=== PATIENT | male | born 1980 | race Caucasian/White ===

== ENCOUNTER 2018-08-30 13:24 | Inpatient (IN) | payer OTHER ==
[2018-08-30 15:28] VITALS: BMI 22.6
--- NOTE | 2018-08-30 16:27 | HP ---
CIWA Score - Admission Criteria OASAS Guidelines: Admission for Medically Managed Detox: Requires at least one of the followin. CIWA greater than 12 2. Seizures within the past 24 hours 3. Delirium tremens within the past 24 hours 4. Hallucinations within the past 24 hours 5. Acute intervention needed for co occurring medical disorder 6. Acute intervention needed for co occurring psychiatric disorder 7. Severe withdrawal that cannot be handled at a lower level of care (continued vomiting, continued diarrhea, abnormal vital signs) requiring intravenous medication and/or fluids 8. Admission ROS S - HPI Allergies/Adverse Reactions: Allergies Allergy/AdvReac Type Severity Reaction Status Date / Time fish derived Allergy Intermediate Swelling Verified 08/30/18 15:19 No Known Drug Allergies Allergy Verified 08/30/18 17:06 History of Present Illness: Search Terms: nona eric, 1980 Search Date: 08/30/2018 04:19:51 PM The Drug Utilization Report below displays all of the controlled substance prescriptions, if any, that your patient has filled in the last twelve months. The information displayed on this report is compiled from pharmacy submissions to the Department, and accurately reflects the information as submitted by the pharmacies. This report was requested by: Marie Acosta | Reference #: [id number] There are no results for the search terms that you entered. pt here requesting rehab from opiate and cocaine use , [facility] january [facility] , current daily dose 120 mg etoh : denies current use cocaine : crack cocaine 2-3 x/ week cannabis : daily tobacco : daily heroin : " only when I miss my program " PMHX : hiv , glaucoma , UE neuropathy r hand after frx 1 year ago , heart murmur, asthma, pancreatitis PSHx : denies Psych : adhd , bipolar d/o , sad not on meds " I don't like the meds " , denies SI / HI . SHX : homeless , unemployed Exam Limitations: Clinical Condition, Intoxication - Ebola screening Have you traveled outside of the country in the last 21 days: No Have you had contact with anyone from an Ebola affected area: No Do you have a fever: No - Review of Systems Constitutional: Loss of Appetite EENT: reports: Other (glasses) Respiratory: reports: No Symptoms reported Cardiac: reports: No Symptoms Reported GI: reports: See HPI : reports: No Symptoms Reported Musculoskeletal: reports: No Symptoms Reported Integumentary: reports: No Symptoms Reported Neuro: reports: No Symptoms reported Endocrine: reports: No Symptoms Reported Psychiatric: reports: Orientated x3, other (drowsy , falls asleep frequently during interview , awakened by verbal stimuli.) Patient History - Smoking Cessation Smoking history: Current every day smoker Have you smoked in the past 12 months: Yes Initiated information on smoking cessation: No - Substances abused Heroin Substance route: Injection Frequency: 3-6 times per week Amount used: $30 Age of first use: 37 Date of last use: 08/30/18 Marijuana/Hashish Substance route: Smoking Frequency: Daily Amount used: 6-7 blunts Age of first use: 11 Date of last use: 08/30/18 Crack Substance route: Smoking Frequency: 3-6 times per week Amount used: 6 bags Age of first use: 35 Date of last use: 08/30/18 Family Disease History - Family Disease History Family History: Unable to Obtain Admission Physical Exam [facility] - Vital Signs Vital Signs: Vital Signs - 24 hr 08/30/18 08/30/18 15:17 16:01 Temperature 98 F 98 F Pulse Rate 56 L 56 L Respiratory 16 16 Rate Blood Pressure 94/60 94/60 - Physical General Appearance: Yes: Intoxicated HEENTM: Yes: EOMI, Normocephalic, Normal Voice Respiratory: Yes: Lungs Clear, No Respiratory Distress, No Accessory Muscle Use Neck: Yes: No masses,lesions,Nodules, Trachea in good position Cardiology: Yes: Regular Rhythm, Regular Rate, S1, S2 Abdominal: Yes: Non Tender, Soft Back: Yes: Normal Inspection Musculoskeletal: Yes: Gait Steady Extremities: Yes: Normal Range of Motion, Non-Tender Neurological: Yes: Fully Oriented, Alert, Motor Strength 5/5 Integumentary: Yes: Warm, Other (excoriation on nose , reports cigarette burn , and on forearms several round excoriations , self-inflicted.) - Diagnostic (1) Opioid dependence on agonist therapy Current Visit: Yes Status: Acute (2) Cocaine abuse Current Visit: Yes Status: Chronic (3) Nicotine dependence Current Visit: Yes Status: Chronic Qualifiers: Nicotine product type: cigarettes Breathalyzer - Breathalyzer Breathalyzer: 0 Urine Drug Screen - Test Device Lot number: [id number] Expiration date: 05/10/20 - Control Is test valid?: Yes - Results Drug screen NEGATIVE: No Urine drug screen results: THC-Marijuana, TRACY-Cocaine, MOP-Opiates, MTD- Methadone Inpatient Rehab Admission - Rehab Decision to Admit Inpatient rehab admission?: Yes - Initial Determination Are CD services needed?: Yes Free of communicable disease: Yes Not in need of hospitalization: Yes - Rehab Admission Criteria Previous failed treatment: Yes Poor recovery environment: Yes Comorbidities: No Lacks judgement: Yes Patient is meeting Inpatient Rehab admission criteria:: Yes
[2018-08-30] MEDS ORDERED: MAG HYDROX/AL HYDROX/SIMETH 30 ML UNIT-DOSE CUP PO PRN (16:58)
[2018-08-30] MEDS ORDERED: P-EPHED 60MG/TRIPROLIDI 2.5MG TABLET PO PRN (16:58)
[2018-08-30] MEDS ORDERED: guaiFENesin 200 MG/10 ML 10 ML UNIT-DOSE CUPS PO PRN (16:58)
[2018-08-30] MEDS ORDERED: MAGNESIUM HYDROX 2400MG/30ML ORAL SUSPENSION 30 ML CUP PO PRN (16:58)
[2018-08-30] MEDS ORDERED: IBUPROFEN 400 MG TABLET (FP) PO PRN (16:58)
[2018-08-30] MEDS ORDERED: ACETAMINOPHEN 325 MG TABLET (FP) PO PRN (16:58)
[2018-08-30] MEDS ORDERED: ALBUTEROL SO4 0.083% IH SOL 2.5 MG/3 ML VIAL.NEB. NEB PRN (16:58)
[2018-08-30] MEDS ORDERED: MAGNESIUM CITRATE 300 ML BOTTLE PO PRN (16:58)
[2018-08-30] MEDS ORDERED: NICOTINE POLACRILEX 2 MG GUM BC PRN (16:58)
[2018-08-30] MEDS ORDERED: MENTHOL/PHENOL 1 EACH UD MM PRN (16:58)
[2018-08-30] MEDS: THIAMINE HCL 100 MG TABLET (FP) PO SCH (21:57)
[2018-08-30] MEDS: MELATONIN 5 MG TABLETS PO PRN (21:57)
[2018-08-30] MEDS: BACITRACIN/POLYMYXIN B SULFATE 15 GM TUBE TP SCH (21:57)
[2018-08-31 05:49] LABS: PH,URINE 7.5 (5.0-8.0); URINE APPEARANCE CLEAR; URINE BILIRUBIN NEGATIVE (NEGATIVE); URINE COLOR YELLOW; URINE GLUCOSE (UA) NEGATIVE (NEGATIVE); URINE KETONE NEGATIVE (NEGATIVE); URINE LEUK ESTERASE NEGATIVE (NEGATIVE); URINE NITRITE NEGATIVE (NEGATIVE); URINE PROTEIN NEGATIVE (NEGATIVE)
[2018-08-31] MEDS ORDERED: METHADONE HCL 40 MG DISPERSABLE TABLET PO ONE (09:45)
[2018-08-31] MEDS: BACITRACIN/POLYMYXIN B SULFATE 15 GM TUBE TP SCH ×2 (10:23→21:08)
[2018-08-31] MEDS: PRENATAL VITAMINS W/ FOLIC ACID TABLET (FP) PO SCH (10:23)
[2018-08-31 11:49] LABS: HEMATOCRIT 39.8 % (35.4-49); HEMOGLOBIN 13.2 GM/dL (11.7-16.9); MCH 28.7 pg (25.7-33.7); MCHC 33.3 g/dl (32.0-35.9); MEAN CELL VOLUME 86.2 fl (80-96); MEAN PLT VOLUME 10.6 fl (7.5-11.1); PLATELET COUNT 189 K/MM3 (134-434); RBC 4.62 M/mm3 (4.00-5.60); RDW 14.1 % (11.9-15.9); WHITE BLOOD COUNT 5.8 K/mm3 (4.0-10.0)
[2018-08-31 12:03] LABS: ALBUMIN 3.5 g/dl (3.4-5.0); BILIRUBIN,TOTAL 0.6 mg/dL (0.2-1); BLOOD UREA NITROGEN 15.6 mg/dL (7-18); CALCIUM 8.6 mg/dL (8.5-10.1); CREATININE 0.9 mg/dL (0.55-1.3); POTASSIUM 4.3 mmol/L (3.5-5.1); TOT PROT 7.4 g/dl (6.4-8.2)
[2018-08-31] MEDS: THIAMINE HCL 100 MG TABLET (FP) PO SCH (21:06)
[2018-08-31] MEDS: MELATONIN 5 MG TABLETS PO PRN (21:08)
[2018-09-01] MEDS: METHADONE HCL 40 MG DISPERSABLE TABLET PO SCH (06:23)
[2018-09-01] MEDS: PRENATAL VITAMINS W/ FOLIC ACID TABLET (FP) PO SCH (09:31)
[2018-09-01] MEDS: BACITRACIN/POLYMYXIN B SULFATE 15 GM TUBE TP SCH ×2 (09:32→21:03)
[2018-09-01] MEDS ORDERED: ALBUTEROL SO4 8 GM HFA INHALER IH PRN (11:55)
[2018-09-01] MEDS: EMTRICITAB/RILPIVIRINE/TENOFOV 1 EACH TABLET PO SCH (12:44)
[2018-09-01] MEDS: MELATONIN 5 MG TABLETS PO PRN (21:03)
[2018-09-01] MEDS: THIAMINE HCL 100 MG TABLET (FP) PO SCH (21:03)
[2018-09-02] MEDS: METHADONE HCL 40 MG DISPERSABLE TABLET PO SCH (06:19)
[2018-09-02] MEDS: EMTRICITAB/RILPIVIRINE/TENOFOV 1 EACH TABLET PO SCH (09:53)
[2018-09-02] MEDS: PRENATAL VITAMINS W/ FOLIC ACID TABLET (FP) PO SCH (09:53)
[2018-09-02] MEDS: BACITRACIN/POLYMYXIN B SULFATE 15 GM TUBE TP SCH ×2 (09:53→21:03)
[2018-09-02] MEDS: CYPROHEPTADINE HCL 4 MG TABLET PO SCH (16:51)
[2018-09-02] MEDS: THIAMINE HCL 100 MG TABLET (FP) PO SCH (21:02)
[2018-09-02] MEDS: MELATONIN 5 MG TABLETS PO PRN (21:02)
[2018-09-03] MEDS: METHADONE HCL 40 MG DISPERSABLE TABLET PO SCH (06:11)
[2018-09-03] MEDS: CYPROHEPTADINE HCL 4 MG TABLET PO SCH ×3 (06:13→17:23)
[2018-09-03] MEDS: PRENATAL VITAMINS W/ FOLIC ACID TABLET (FP) PO SCH (09:44)
[2018-09-03] MEDS: EMTRICITAB/RILPIVIRINE/TENOFOV 1 EACH TABLET PO SCH (09:44)
[2018-09-03] MEDS: BACITRACIN/POLYMYXIN B SULFATE 15 GM TUBE TP SCH ×2 (09:44→21:04)
--- NOTE | 2018-09-03 16:44 | CONSULT ---
[facility] Psychiatric Consult - Data Date of interview: 09/03/18 Admission source: [facility] Identifying data: First admission to [facility] and direct admission to [address] for this 38 y/o male referred by [facility] program for rehabilitative care to maintain abstinence and address co-morbid issues of ADHD , mood disorder and substance use disorders (alcohol, cocaine, cannabis, nicotine). Patient is single, a father of four, homeless, unemployed and supported [facility]. Substance Abuse History: Discussed in this session. Mr Gaitan admits to current data reported in current [facility] narrative : Smoking history: Current every day smoker. Have you smoked in the past 12 months: Yes. Initiated information on smoking cessation: No. Substances abused: Heroin. Substance route: Injection. Frequency: 3-6 times per week. Amount used: $30. Age of first use : 37. Date of last use: 08/30/18. Marijuana/Hashish. Substance route: Smoking. Frequency: Daily. Amount used: 6-7 blunts. Age of first use: 11. Date of last use: 08/30/18. Crack. Substance route: Smoking. Frequency: 3- 6 times per week. Amount used: 6 bags. Age of first use: 35. Date of last use : 08/30/18 Medical History: Medical profile is remarkable for HIV infection (ART prescribed by patient is non-compliant), glaucoma, neuropathy, heart murmur, bronchial asthma and history of pancreatitis. Psychiatric History: Patient denies history of psychiatric hospitalizations. Mr gaitan indicates that he " used to be " prescribed psychotropic medications ( mirtazapine, quetiapine, thorazine, risperidone) in the past. Has reportedly STOPPED taking these medications for almost two years. Patient has dropped out of psychiatric OPD care at [facility] (now attends Infectious Diseases clinic only). Diagnosed with ADHD and Schizoaffective Disorder. Patient admits to a history of multiple suicide attempts via self-mutilation (last attempt was at [facility] in 2018). Physical/Sexual Abuse/Trauma History: Not discussed. Patient declines. Additional Comment: Urine drug screen results: THC-Marijuana, TRACY-Cocaine, MOP- Opiates, MTD-Methadone. Noted. Mental Status Exam - Mental Status Exam Alert and Oriented to: Time, Place, Person Cognitive Function: Good Patient Appearance: Well Groomed (tattoos on neck and upper extremities) Mood: Withdrawn, Anxious Affect: Mood Congruent, Constricted Patient Behavior: Appropriate, Cooperative Speech Pattern: Clear, Appropriate (cook islander fluent) Voice Loudness: Normal Thought Process: Intact, Goal Oriented Thought Disorder: Not Present Hallucinations: Denies Suicidal Ideation: Denies Homicidal Ideation: Denies Insight/Judgement: Fair Sleep: Poorly, Difficulty falling asleep (ants seroquel) Appetite: Good Muscle strength/Tone: Normal Gait/Station: Normal Psychiatric Findings - Problem List ([place] 1, 2,3) (1) Opioid dependence on agonist therapy Current Visit: Yes Status: Chronic (2) Cocaine abuse Current Visit: Yes Status: Chronic (3) Nicotine dependence Current Visit: Yes Status: Chronic Qualifiers: Nicotine product type: cigarettes (4) Cannabis abuse Current Visit: Yes Status: Chronic (5) Substance induced mood disorder Current Visit: Yes Status: Chronic (6) Insomnia Current Visit: Yes Status: Chronic (7) History of bipolar disorder Current Visit: Yes Status: Chronic (8) Non-compliance Current Visit: Yes Status: Chronic - Initial Treatment Plan Initial Treatment Plan: Psychoeducation. Sleep hygiene. NA meetings. Support. Motivational counseling. Groups. Psychotherapy (cognitive, individual). Seroquel 100 mg po hs. Ordered at patient's request. Side effects/benefits discussed with patient. Verbal consent granted to MD. Campos.
[2018-09-03] MEDS: THIAMINE HCL 100 MG TABLET (FP) PO SCH (21:03)
[2018-09-03] MEDS: QUEtiapine FUMARATE 100 MG TABLET (FP) PO SCH (21:03)
[2018-09-04] MEDS: METHADONE HCL 40 MG DISPERSABLE TABLET PO SCH (06:35)
[2018-09-04] MEDS: CYPROHEPTADINE HCL 4 MG TABLET PO SCH ×3 (06:35→16:48)
[2018-09-04] MEDS: BACITRACIN/POLYMYXIN B SULFATE 15 GM TUBE TP SCH ×2 (09:35→21:02)
[2018-09-04] MEDS: EMTRICITAB/RILPIVIRINE/TENOFOV 1 EACH TABLET PO SCH (10:08)
[2018-09-04] MEDS: PRENATAL VITAMINS W/ FOLIC ACID TABLET (FP) PO SCH (10:08)
--- NOTE | 2018-09-04 14:48 | PN ---
[facility] Progress Note (SOAP) Subjective: patient has a court date tomorrow and has to leave today. Objective: Medically stable for discharge. 09/04/18 14:45 CBC, BMP 08/31/18 09:20 08/31/18 09:20 Vital Signs (72 hours) 09/02/18 09/02/18 09/02/18 00:30 03:30 06:49 Temperature 98.2 F Pulse Rate 66 Respiratory 18 18 16 Rate Blood Pressure 120/68 09/03/18 09/03/18 09/03/18 00:30 03:30 06:20 Temperature 98.6 F Pulse Rate 67 Respiratory 18 18 16 Rate Blood Pressure 112/68 09/04/18 09/04/18 09/04/18 00:30 03:30 06:43 Temperature 98.1 F Pulse Rate 86 Respiratory 18 18 18 Rate Blood Pressure 121/60 Assessment: medically stable for discharge Discharge Dx Opioid dependence Cocaine Dependence HIV dependence. 09/04/18 14:46 Plan: Client will be going home and to court tomorrow. No further plans. Prescriptions transmitted to pharmacy.
--- NOTE | 2018-09-04 14:49 | PN ---
S Progress Note Note: Requested by nursing to electronically transmit script for patient being discharged prematurely. Script for 30 days supply of Seroquel 100 mg/hs is e transmitted to [facility] at [address] [place] [id number]
[2018-09-04] MEDS: THIAMINE HCL 100 MG TABLET (FP) PO SCH (21:02)
[2018-09-04] MEDS: QUEtiapine FUMARATE 100 MG TABLET (FP) PO SCH (21:02)
[2018-09-05] MEDS: CYPROHEPTADINE HCL 4 MG TABLET PO SCH ×2 (06:00→11:22)
[2018-09-05] MEDS: METHADONE HCL 40 MG DISPERSABLE TABLET PO SCH (06:00)
[2018-09-05 06:41] VITALS: BP 95/53; PULSE 81; TEMP 98.4
[2018-09-05] MEDS: EMTRICITAB/RILPIVIRINE/TENOFOV 1 EACH TABLET PO SCH (09:23)
[2018-09-05] MEDS: PRENATAL VITAMINS W/ FOLIC ACID TABLET (FP) PO SCH (09:23)
[2018-09-05] MEDS: BACITRACIN/POLYMYXIN B SULFATE 15 GM TUBE TP SCH (09:23)
--- NOTE | 2018-09-05 15:44 | PN ---
[facility] Progress Note Note: Patient insists on leaving AMA. States has legal obligations. Vital Signs - 24 hr 09/05/18 09/05/18 09/05/18 00:30 03:30 06:39 Temperature 98.4 F Pulse Rate 81 Respiratory 18 18 18 Rate Blood Pressure 95/53 L Laboratory Last Values WBC 5.8 K/mm3 (4.0-10.0) 08/31/18 09:20 RBC 4.62 M/mm3 (4.00-5.60) 08/31/18 09:20 Hgb 13.2 GM/dL (11.7-16.9) 08/31/18 09:20 Hct 39.8 % (35.4-49) 08/31/18 09:20 MCV 86.2 fl (80-96) 08/31/18 09:20 MCH 28.7 pg (25.7-33.7) 08/31/18 09:20 MCHC 33.3 g/dl (32.0-35.9) 08/31/18 09:20 RDW 14.1 % (11.9-15.9) 08/31/18 09:20 Plt Count 189 K/MM3 (134-434) 08/31/18 09:20 MPV 10.6 fl (7.5-11.1) 08/31/18 09:20 Sodium 138 mmol/L (136-145) 08/31/18 09:20 Potassium 4.3 mmol/L (3.5-5.1) 08/31/18 09:20 Chloride 103 mmol/L (98-107) 08/31/18 09:20 Carbon Dioxide 31 mmol/L (21-32) 08/31/18 09:20 Anion Gap 4 MMOL/L (8-16) L 08/31/18 09:20 BUN 15.6 mg/dL (7-18) 08/31/18 09:20 Creatinine 0.9 mg/dL (0.55-1.3) 08/31/18 09:20 Est GFR (CKD-EPI)AfAm 126.90 08/31/18 09:20 Est GFR (CKD-EPI)NonAf 109.49 08/31/18 09:20 Random Glucose 80 mg/dL (74-106) 08/31/18 09:20 Calcium 8.6 mg/dL (8.5-10.1) 08/31/18 09:20 Total Bilirubin 0.6 mg/dL (0.2-1) 08/31/18 09:20 AST 21 U/L (15-37) 08/31/18 09:20 ALT 25 U/L (13-61) 08/31/18 09:20 Alkaline Phosphatase 76 U/L (45-117) 08/31/18 09:20 Total Protein 7.4 g/dl (6.4-8.2) 08/31/18 09:20 Albumin 3.5 g/dl (3.4-5.0) 08/31/18 09:20 Urine Color Yellow 08/31/18 04:00 Urine Appearance Clear 08/31/18 04:00 Urine pH 7.5 (5.0-8.0) 08/31/18 04:00 Ur Specific [place] 1.022 (1.010-1.035) 08/31/18 04:00 Urine Protein Negative (NEGATIVE) 08/31/18 04:00 Urine Glucose (UA) Negative (NEGATIVE) 08/31/18 04:00 Urine Ketones Negative (NEGATIVE) 08/31/18 04:00 Urine Blood Negative (NEGATIVE) 08/31/18 04:00 Urine Nitrite Negative (NEGATIVE) 08/31/18 04:00 Urine Bilirubin Negative (NEGATIVE) 08/31/18 04:00 Urine Urobilinogen 1.0 mg/dL (0.2-1.0) 08/31/18 04:00 Ur Leukocyte Esterase Negative (NEGATIVE) 08/31/18 04:00 RPR Titer Nonreactive (NONREACTIVE) 08/31/18 09:20 Labs reviewed. Patient admitted to rehab w/ a history cocaine use disorder. Patient on methadone maintenance. Patient will return to his MMTP in a.m. Patients other prescribed medications were sent to patients home pharmacy on 09/04. Patient left AMA.
== END 2018-09-05 14:35 | disposition left against medical advice (07) | DRG 770 ==
LOC: YASAS 13:24 → Y5N 17:23
PROVIDERS: ADMIT Neuromusculoskeletal Medicine & OMM; ATTEND Neuromusculoskeletal Medicine & OMM
PROC: HZ42ZZZ Group Counseling for Substance Abuse Treatment, Cognitive-Behavioral (ICD-10-PCS; principal; 2018-08-30)
DX: F14.10 Cocaine abuse, uncomplicated (principal); F11.20 Opioid dependence, uncomplicated; F17.210 Nicotine dependence, cigarettes, uncomplicated; F19.24 Other psychoactive substance dependence with psychoactive substance-induced mood disorder; Z21 Asymptomatic human immunodeficiency virus [HIV] infection status; G47.00 Insomnia, unspecified; H40.9 Unspecified glaucoma; G62.9 Polyneuropathy, unspecified; R01.1 Cardiac murmur, unspecified; J45.909 Unspecified asthma, uncomplicated; Z91.14 Patient's other noncompliance with medication regimen; Z91.013 Allergy to seafood
CPT/HCPCS: 36415; 80053; 81003; 85027; 86593

== ENCOUNTER 2018-09-06 15:57 | Inpatient (IN) | payer OTHER ==
[2018-09-06 16:32] VITALS: BMI 20.9
--- NOTE | 2018-09-06 19:14 | HP ---
COWS - Scale Resting Pulse: 0= MD 80 or Below Sweatin= Chills/Flushing Restless Observation: 3= Extraneous Movement Pupil Size: 0= Normal to Room Light Bone or Joint Aches: 4=Acute Joint/Muscle Pain Runny Nose/ Eye Tearin= Runny Nose/Eyes GI Upset > 30mins: 1= Stomach Cramp Tremor Observation: 0= None Yawning Observation: 0= None Anxiety or Irritability: 2=Irritable/Anxious Goose Flesh Skin: 0=Smooth Skin COWS Score: 13 CIWA Score - Admission Criteria OASAS Guidelines: Admission for Medically Managed Detox: Requires at least one of the followin. CIWA greater than 12 2. Seizures within the past 24 hours 3. Delirium tremens within the past 24 hours 4. Hallucinations within the past 24 hours 5. Acute intervention needed for co occurring medical disorder 6. Acute intervention needed for co occurring psychiatric disorder 7. Severe withdrawal that cannot be handled at a lower level of care (continued vomiting, continued diarrhea, abnormal vital signs) requiring intravenous medication and/or fluids 8. Admission ROS [facility] Allergies/Adverse Reactions: Allergies Allergy/AdvReac Type Severity Reaction Status Date / Time fish derived Allergy Intermediate Swelling Verified 09/06/18 16:24 No Known Drug Allergies Allergy Verified 09/06/18 16:24 History of Present Illness: requesting to return to rehab left yesterday to go to court , postponed through 09/28/18 opiate and cocaine [facility] January 2018 , current daily dose 120 mg , latest administered yesterday, current symptoms as above etoh : denies current use cocaine : crack cocaine 2-3 x/ week cannabis : daily tobacco : daily heroin : " only when I miss my program " PMHX : hiv , glaucoma , UE neuropathy r hand after frx 1 year ago , heart murmur, asthma, pancreatitis PSHx : denies Psych : adhd , bipolar d/o , sad not on meds " I don't like the meds " , denies SI / HI . Exam Limitations: Clinical Condition - Ebola screening Have you traveled outside of the country in the last 21 days: No Have you had contact with anyone from an Ebola affected area: No - Review of Systems Constitutional: See HPI, Chills, Night Sweats EENT: reports: Nose Congestion Respiratory: reports: No Symptoms reported Cardiac: reports: No Symptoms Reported GI: reports: Diarrhea, Nausea : reports: No Symptoms Reported Musculoskeletal: reports: Back Pain, Muscle Weakness Neuro: reports: Headache Endocrine: reports: No Symptoms Reported Psychiatric: reports: Orientated x3 Patient History - Patient Medical History Hx Asthma: No Hx Chronic Obstructive Pulmonary Disease (COPD): No Hx Cardiac Disorders: No Hx Hypertension: No Hx Seizures: No Hx Diabetes: No Hx Gastrointestinal Disorders: No Hx Genitourinary Disorders: No Hx Sexually Transmitted Disorders: Yes (HIV) Hx Renal Disease (ESRD): No Hx Depression: Yes Hx Suicide Attempt: No Hx Schizophrenia: No - Patient Surgical History Past Surgical History: No Hx Neurologic Surgery: No Hx Cataract Extraction: No Hx Cardiac Surgery: No Hx Lung Surgery: No Hx Breast Surgery: No Hx Breast Biopsy: No Hx Abdominal Surgery: No Hx Appendectomy: No Hx Cholecystectomy: No Hx Genitourinary Surgery: No Hx Section: No Hx Orthopedic Surgery: No Anesthesia Reaction: No - PPD History Date: 09/01/18 - Smoking Cessation Smoking history: Current every day smoker Have you smoked in the past 12 months: Yes Aproximately how many cigarettes per day: 20 Hx Chewing Tobacco Use: No Initiated information on smoking cessation: No - Substances abused Heroin Substance route: Injection Frequency: 3-6 times per week Amount used: $30 Age of first use: 37 Date of last use: 09/05/18 Marijuana/Hashish Substance route: Smoking Frequency: Daily Amount used: 6-7 blunts Age of first use: 11 Date of last use: 09/06/18 Crack Substance route: Smoking Frequency: 3-6 times per week Amount used: 6 bags Age of first use: 35 Date of last use: 09/06/18 Alcohol Substance route: Oral Frequency: Daily Amount used: 1/2 gallon (Vodka) Age of first use: 25 Date of last use: 08/27/18 Admission Physical Exam [facility] - Vital Signs Vital Signs: Vital Signs - 24 hr 09/06/18 16:20 Temperature 98.8 F Pulse Rate 99 H Respiratory 18 Rate Blood Pressure 118/63 - Physical General Appearance: Yes: Mild Distress, Moderate Distress, Sweating, Anxious HEENTM: Yes: Normocephalic, Normal Voice Respiratory: Yes: Lungs Clear, Normal Breath Sounds, No Respiratory Distress, No Accessory Muscle Use Neck: Yes: No masses,lesions,Nodules, Trachea in good position Cardiology: Yes: Regular Rhythm, Regular Rate, S1, S2 Abdominal: Yes: Non Tender, Soft Musculoskeletal: Yes: Gait Steady Extremities: Yes: Non-Tender, Tremors Neurological: Yes: Alert, Motor Strength 5/5, Depressed Affect Integumentary: Yes: Warm - Addiitonal Findings: essentially unchanged since 08/30/18 , previous h & p reviewed. pt will be admitted to detox overnight for observation and symptomatic tx due to current complaints , and plan to transfer to rehab in the am if stable - Diagnostic (1) Cannabis abuse Current Visit: Yes Status: Chronic (2) Cocaine abuse Current Visit: Yes Status: Chronic (3) Nicotine dependence Current Visit: Yes Status: Chronic Qualifiers: Nicotine product type: cigarettes (4) Opioid dependence on agonist therapy Current Visit: Yes Status: Chronic Breathalyzer - Breathalyzer Breathalyzer: 0 Urine Drug Screen - Test Device Lot number: [id number] Expiration date: 05/10/20 - Control Is test valid?: Yes - Results Drug screen NEGATIVE: No Urine drug screen results: THC-Marijuana, TRACY-Cocaine, FEN-Fentanyl, MTD- Methadone Inpatient Rehab Admission - Rehab Decision to Admit Inpatient rehab admission?: Yes - Initial Determination Are CD services needed?: Yes Free of communicable disease: Yes Not in need of hospitalization: Yes - Rehab Admission Criteria Previous failed treatment: No Poor recovery environment: Yes Comorbidities: No Lacks judgement: Yes Patient is meeting Inpatient Rehab admission criteria:: Yes
[2018-09-06] MEDS ORDERED: ACETAMINOPHEN 325 MG TABLET (FP) PO PRN (19:15)
[2018-09-06] MEDS ORDERED: MAGNESIUM HYDROX 2400MG/30ML ORAL SUSPENSION 30 ML CUP PO PRN (19:15)
[2018-09-06] MEDS ORDERED: MENTHOL/PHENOL 1 EACH UD MM PRN (19:15)
[2018-09-06] MEDS ORDERED: guaiFENesin 200 MG/10 ML 10 ML UNIT-DOSE CUPS PO PRN (19:15)
[2018-09-06] MEDS ORDERED: IBUPROFEN 400 MG TABLET (FP) PO PRN (19:15)
[2018-09-06] MEDS ORDERED: P-EPHED 60MG/TRIPROLIDI 2.5MG TABLET PO PRN (19:15)
[2018-09-06] MEDS ORDERED: MAG HYDROX/AL HYDROX/SIMETH 30 ML UNIT-DOSE CUP PO PRN (19:15)
[2018-09-06] MEDS ORDERED: hydrOXYzine PAMOATE 25 MG CAPSULE (FP) PO PRN (19:15)
[2018-09-06] MEDS ORDERED: MAGNESIUM CITRATE 300 ML BOTTLE PO PRN (19:15)
[2018-09-06] MEDS ORDERED: ALBUTEROL SO4 8 GM HFA INHALER IH PRN (19:16)
[2018-09-06] MEDS ORDERED: METHADONE HCL 10 MG TABLET PO ONE (19:18)
[2018-09-06] MEDS ORDERED: cloNIDine HCL 0.1 MG TABLET PO PRN (19:57)
[2018-09-06] MEDS ORDERED: METHADONE 80 MG, METHADONE 10 MG PO ONE (20:15)
[2018-09-06] MEDS ORDERED: METHADONE HCL 40 MG DISPERSABLE TABLET ONE (20:30)
[2018-09-06] MEDS ORDERED: METHADONE HCL 10 MG TABLET ONE (20:30)
[2018-09-06] MEDS: THIAMINE HCL 100 MG TABLET (FP) PO SCH (22:32)
[2018-09-06] MEDS: MELATONIN 5 MG TABLETS PO PRN (22:32)
[2018-09-07] MEDS ORDERED: METHADONE HCL 40 MG DISPERSABLE TABLET PO SCH (06:00)
--- NOTE | 2018-09-07 09:08 | PN ---
S CIWA - CIWA Score Nausea/Vomitin-No Nausea/No Vomiting S Progress Note (SOAP) Objective: 09/07/18 09:07 Vital Signs Temperature 97.7 F 09/07/18 06:31 Pulse Rate 65 09/07/18 06:31 Respiratory Rate 18 09/07/18 06:31 Blood Pressure 105/50 L 09/07/18 06:31 O2 Sat by Pulse Oximetry (%) Assessment: 09/07/18 09:08 Patient on MMTP at [facility]. On admission reported dose of 120 mg, dose verified last day of attendance to program 08/30/18, will adjust dose to 90 mg qd
[2018-09-07] MEDS ORDERED: METHADONE HCL 10 MG TABLET PO SCH (09:15)
[2018-09-07] MEDS ORDERED: METHADONE 80 MG, METHADONE 10 MG PO SCH (09:30)
[2018-09-07] MEDS ORDERED: METHADONE HCL 10 MG TABLET ONE (09:49)
[2018-09-07] MEDS ORDERED: METHADONE HCL 40 MG DISPERSABLE TABLET ONE (09:49)
--- NOTE | 2018-09-07 10:41 | PN ---
[facility] Progress Note Note: pt states he was in our rehab from 08/30/18-09/05/18 and left AMA to attend a court date as he was told to do by his assistant professor nurse education. Pt returned yesterday to go back to rehab but no bed was available. Pt was sent to [facility] detox floor until he has a bed in rehab is available for him today. Pt dose for 120mg will be continued as ordered.
[2018-09-07] MEDS ORDERED: METHADONE HCL 40 MG DISPERSABLE TABLET PO ONE (11:00)
[2018-09-07] MEDS: PRENATAL VITAMINS W/ FOLIC ACID TABLET (FP) PO SCH (11:17)
[2018-09-07] MEDS: NICOTINE POLACRILEX 2 MG GUM BC PRN (11:18)
[2018-09-07] MEDS: EMTRICITAB/RILPIVIRINE/TENOFOV 1 EACH TABLET PO SCH (11:18)
[2018-09-07] MEDS: THIAMINE HCL 100 MG TABLET (FP) PO SCH (22:20)
[2018-09-07] MEDS: MELATONIN 5 MG TABLETS PO PRN (22:20)
[2018-09-08] MEDS ORDERED: METHADONE HCL 40 MG DISPERSABLE TABLET PO SCH (06:00)
[2018-09-08] MEDS ORDERED: METHADONE HCL 5 MG TABLET (FOR DETOX USE ONLY) PO SCH (06:00)
[2018-09-08] MEDS: PRENATAL VITAMINS W/ FOLIC ACID TABLET (FP) PO SCH (10:16)
[2018-09-08] MEDS: EMTRICITAB/RILPIVIRINE/TENOFOV 1 EACH TABLET PO SCH (10:16)
[2018-09-08] MEDS: NICOTINE POLACRILEX 2 MG GUM BC PRN (10:17)
--- NOTE | 2018-09-08 10:19 | PN ---
[facility] Progress Note Note: Pt was seen in ambulating in the unit in no acute respiratory distress. Pt denies any withdrawal symptoms. Awaiting for rehab bed.
[2018-09-08 10:41] VITALS: BP 111/62; PULSE 69; TEMP 97.9
[2018-09-08] MEDS ORDERED: ALBUTEROL SO4 8 GM HFA INHALER IH PRN (15:46)
[2018-09-08] MEDS ORDERED: hydrOXYzine PAMOATE 25 MG CAPSULE (FP) PO PRN (15:47)
[2018-09-09] MEDS ORDERED: EMTRICITAB/RILPIVIRINE/TENOFOV 1 EACH TABLET PO SCH (08:00)
== END 2018-09-08 14:15 | disposition other institution (70) | DRG 773 ==
LOC: YASAS 15:57 → Y6N 19:46
PROVIDERS: ADMIT Surgery; ATTEND Surgery
PROC: HZ2ZZZZ Detoxification Services for Substance Abuse Treatment (ICD-10-PCS; principal; 2018-09-06)
DX: F11.20 Opioid dependence, uncomplicated (principal); F14.10 Cocaine abuse, uncomplicated; F12.10 Cannabis abuse, uncomplicated; F17.210 Nicotine dependence, cigarettes, uncomplicated; Z21 Asymptomatic human immunodeficiency virus [HIV] infection status

== ENCOUNTER 2018-09-08 14:32 | Inpatient (IN) | payer OTHER ==
--- NOTE | 2018-09-08 15:19 | HP ---
[facility] Rehab Assess/Revision - Admission History Admitted to Rehab from: [facility] Date of Admission to Rehab: 09/08/2018 - Vital signs Vital Signs: stable. - Findings Detox History & Physical reviewed: Yes Concur with findings: Yes Comments/Additional Findings: Pt is alert and oriented x3 and in no respiratory distress. Inpatient Rehab Admission - Rehab Decision to Admit Inpatient rehab admission?: Yes - Initial Determination Are CD services needed?: Yes Free of communicable disease: Yes Not in need of hospitalization: Yes - Rehab Admission Criteria Previous failed treatment: Yes Poor recovery environment: Yes Comorbidities: Yes Lacks judgement: No Patient is meeting Inpatient Rehab admission criteria:: Yes
[2018-09-08] MEDS ORDERED: MENTHOL/PHENOL 1 EACH UD MM PRN (15:21)
[2018-09-08] MEDS ORDERED: guaiFENesin 200 MG/10 ML 10 ML UNIT-DOSE CUPS PO PRN (15:21)
[2018-09-08] MEDS ORDERED: IBUPROFEN 400 MG TABLET (FP) PO PRN (15:21)
[2018-09-08] MEDS ORDERED: MAGNESIUM CITRATE 300 ML BOTTLE PO PRN (15:21)
[2018-09-08] MEDS ORDERED: P-EPHED 60MG/TRIPROLIDI 2.5MG TABLET PO PRN (15:21)
[2018-09-08] MEDS ORDERED: MAGNESIUM HYDROX 2400MG/30ML ORAL SUSPENSION 30 ML CUP PO PRN (15:21)
[2018-09-08] MEDS ORDERED: LOPERAMIDE HCL 2 MG CAPSULE PO PRN (15:21)
[2018-09-08] MEDS ORDERED: ACETAMINOPHEN 325 MG TABLET (FP) PO PRN (15:21)
[2018-09-08] MEDS ORDERED: ALBUTEROL SO4 8 GM HFA INHALER IH PRN (15:50)
--- NOTE | 2018-09-08 16:04 | PN ---
[facility] Progress Note Note: Psychiatry Attending's note : Patient is transferred to [address] Called for reconciliation of medications. 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 Seroquel 100 mg po hs. Ordered. Continuity of care.
[2018-09-08] MEDS: THIAMINE HCL 100 MG TABLET (FP) PO SCH (21:04)
[2018-09-08] MEDS: QUEtiapine FUMARATE 100 MG TABLET (FP) PO SCH (21:04)
[2018-09-08] MEDS ORDERED: MELATONIN 5 MG TABLETS PO PRN (22:00)
[2018-09-09] MEDS: METHADONE HCL 40 MG DISPERSABLE TABLET PO SCH (06:30)
[2018-09-09] MEDS: PRENATAL VITAMINS W/ FOLIC ACID TABLET (FP) PO SCH (09:37)
[2018-09-09] MEDS: NICOTINE POLACRILEX 2 MG GUM BUC PRN (10:50)
[2018-09-09] MEDS: EMTRICITAB/RILPIVIRINE/TENOFOV 1 EACH TABLET PO SCH (10:55)
[2018-09-09] MEDS: QUEtiapine FUMARATE 100 MG TABLET (FP) PO SCH (21:01)
[2018-09-09] MEDS: THIAMINE HCL 100 MG TABLET (FP) PO SCH (21:02)
[2018-09-10] MEDS: METHADONE HCL 40 MG DISPERSABLE TABLET PO SCH (06:12)
[2018-09-10] MEDS: NICOTINE POLACRILEX 2 MG GUM BUC PRN ×2 (06:17→09:52)
[2018-09-10] MEDS: PRENATAL VITAMINS W/ FOLIC ACID TABLET (FP) PO SCH (09:51)
[2018-09-10] MEDS: MAG HYDROX/AL HYDROX/SIMETH 30 ML UNIT-DOSE CUP PO PRN (09:52)
[2018-09-10] MEDS: hydrOXYzine PAMOATE 25 MG CAPSULE (FP) PO PRN ×2 (09:52→21:06)
[2018-09-10] MEDS: EMTRICITAB/RILPIVIRINE/TENOFOV 1 EACH TABLET PO SCH (10:46)
[2018-09-10] MEDS: THIAMINE HCL 100 MG TABLET (FP) PO SCH (21:05)
[2018-09-10] MEDS: QUEtiapine FUMARATE 100 MG TABLET (FP) PO SCH (21:05)
[2018-09-11] MEDS: METHADONE HCL 40 MG DISPERSABLE TABLET PO SCH (06:22)
[2018-09-11] MEDS: EMTRICITAB/RILPIVIRINE/TENOFOV 1 EACH TABLET PO SCH (07:06)
[2018-09-11] MEDS: PRENATAL VITAMINS W/ FOLIC ACID TABLET (FP) PO SCH (09:43)
[2018-09-11] MEDS: DOCUSATE SODIUM 100 MG CAPSULE (FP) PO SCH ×2 (14:25→21:06)
--- NOTE | 2018-09-11 16:20 | PN ---
S Progress Note (SOAP) Subjective: PT C/O NO BM X 2 DAYS AND EPIGASTRIC AND LOWER ABDOMINAL DISCOMFORT. REPORTS SOME BURNING ON URINATION. ALERT O X 3. OOB AMBULATING WITH STEADY GAIT. Objective: 09/11/18 16:16 Vital Signs - 24 hr 09/11/18 09/11/18 09/11/18 00:30 03:30 06:38 Temperature 97.9 F Pulse Rate 71 Respiratory 18 18 16 Rate Blood Pressure 106/56 L ABDOMEN:SOFT, +BS, GENERALIZED TENDERNESS. Assessment: 09/11/18 16:16 CHRONIC CONSTIPATION DYSPEPSIA Plan: COLACE 100 MG PO TID D/W PT TO GET MOM STAT MYLANTA PRN PROTONIX IF DYSPEPSIA CONTINUES UA TODAY INCREASE PO FLUIDS. ENSURE PLUS TID
[2018-09-11] MEDS: QUEtiapine FUMARATE 100 MG TABLET (FP) PO SCH (21:06)
[2018-09-11] MEDS: THIAMINE HCL 100 MG TABLET (FP) PO SCH (21:06)
[2018-09-12] MEDS: METHADONE HCL 40 MG DISPERSABLE TABLET PO SCH (06:09)
[2018-09-12] MEDS: DOCUSATE SODIUM 100 MG CAPSULE (FP) PO SCH ×3 (06:09→21:02)
[2018-09-12] MEDS: EMTRICITAB/RILPIVIRINE/TENOFOV 1 EACH TABLET PO SCH (07:07)
[2018-09-12] MEDS: PRENATAL VITAMINS W/ FOLIC ACID TABLET (FP) PO SCH (09:44)
[2018-09-12] MEDS: MAG HYDROX/AL HYDROX/SIMETH 30 ML UNIT-DOSE CUP PO PRN (09:46)
[2018-09-12 12:17] LABS: PH,URINE 7.5 (5.0-8.0); URINE APPEARANCE CLEAR; URINE BILIRUBIN NEGATIVE (NEGATIVE); URINE COLOR YELLOW; URINE GLUCOSE (UA) NEGATIVE (NEGATIVE); URINE KETONE NEGATIVE (NEGATIVE); URINE LEUK ESTERASE NEGATIVE (NEGATIVE); URINE NITRITE NEGATIVE (NEGATIVE); URINE PROTEIN NEGATIVE (NEGATIVE); URINE UROBILINOGEN 0.2 mg/dL (0.2-1.0)
[2018-09-12] MEDS: THIAMINE HCL 100 MG TABLET (FP) PO SCH (21:02)
[2018-09-12] MEDS: QUEtiapine FUMARATE 100 MG TABLET (FP) PO SCH (21:02)
[2018-09-13] MEDS: METHADONE HCL 40 MG DISPERSABLE TABLET PO SCH (06:39)
[2018-09-13] MEDS: DOCUSATE SODIUM 100 MG CAPSULE (FP) PO SCH ×3 (06:42→21:02)
[2018-09-13] MEDS: PRENATAL VITAMINS W/ FOLIC ACID TABLET (FP) PO SCH (09:11)
[2018-09-13] MEDS: EMTRICITAB/RILPIVIRINE/TENOFOV 1 EACH TABLET PO SCH (09:11)
[2018-09-13] MEDS: MAG HYDROX/AL HYDROX/SIMETH 30 ML UNIT-DOSE CUP PO PRN (12:53)
[2018-09-13] MEDS: THIAMINE HCL 100 MG TABLET (FP) PO SCH (21:01)
[2018-09-13] MEDS: QUEtiapine FUMARATE 100 MG TABLET (FP) PO SCH (21:01)
[2018-09-13] MEDS: hydrOXYzine PAMOATE 25 MG CAPSULE (FP) PO PRN (21:02)
[2018-09-13] MEDS: NICOTINE POLACRILEX 2 MG GUM BUC PRN (21:03)
--- NOTE | 2018-09-13 21:37 | PN ---
[facility] Progress Note Note: INFORMED BY NURSE SHANA ABOUT POSSIBILITY OF PATIENT IN ROOM 5[address] POSSESSING ILLICIT DRUGS IN ROOM. SECURITY STAFF INFORMED FOR ROOM SEARCH PER INSTITUTION PROTOCOL. PLEASE SEE NURSING NOTE FOR DETAILED REPORT.URINE DRUG TEST ORDERED. PT ALERT O X 3. NAD. Vital Signs - 24 hr 09/13/18 09/13/18 03:30 06:41 Temperature 98.2 F Pulse Rate 75 Respiratory 18 18 Rate Blood Pressure 108/60 REPEAT UA OF 09/11/18 IS WNL Laboratory Tests 09/12/18 11:00 Urine Color Yellow Urine Appearance Clear Urine pH 7.5 Ur Specific [place] 1.016 Urine Protein Negative Urine Glucose (UA) Negative Urine Ketones Negative Urine Blood Negative Urine Nitrite Negative Urine Bilirubin Negative Urine Urobilinogen 0.2 Ur Leukocyte Esterase Negative UDS FOR TODAY 09/13/18: URINE DRUG SCREEN RESULTS Drug Screen Negative No Urine Drug Screen Results THC-Marijuana,MTD-Methadone ADMITTING UDS OF 09/06/18 BELOW HAS SIMILAR DRUGS TO ABOVE URINE DRUG SCREEN. Urine Drug Screen - Test Device Lot number: [id number] Expiration date: 05/10/20 - Control Is test valid?: Yes - Results Drug screen NEGATIVE: No Urine drug screen results: THC-Marijuana, TRACY-Cocaine, FEN-Fentanyl, MTD- Methadone MONITOR PT STATUS MAINTAIN SAFETY
[2018-09-14 06:46] VITALS: BP 110/71; PULSE 69; TEMP 98.4
[2018-09-14] MEDS: METHADONE HCL 40 MG DISPERSABLE TABLET PO SCH (06:47)
[2018-09-14] MEDS: NICOTINE POLACRILEX 2 MG GUM BUC PRN (06:50)
[2018-09-14] MEDS: DOCUSATE SODIUM 100 MG CAPSULE (FP) PO SCH (07:07)
[2018-09-14] MEDS: EMTRICITAB/RILPIVIRINE/TENOFOV 1 EACH TABLET PO SCH (07:46)
--- NOTE | 2018-09-14 09:16 | PN ---
[facility] Progress Note Note: Vital Signs Temperature 98.4 F 09/14/18 06:45 Pulse Rate 69 09/14/18 06:45 Respiratory Rate 18 09/14/18 06:45 Blood Pressure 110/71 09/14/18 06:45 O2 Sat by Pulse Oximetry (%) Patient was administratively discharged d/t possession of contraband on the unit & inappropriate behavior. Patient was not receptive to the decision. Patient started yelling, crying, stating (several times) " I am going to go buy dope and overdose, and does not care about his daughter. " EMS was called and patient was transported via ambulance to [facility].
--- NOTE | 2018-09-14 12:09 | PN ---
S Progress Note Note: DISCHARGE NOTE PATIENT ADMINISTRATIVELY DISCHARGE. PATIENT TO FOLLOW UP WITH [facility]. FOLLOW UP WITH PCP. Vital Signs Temperature 98.4 F 09/14/18 06:45 Pulse Rate 69 09/14/18 06:45 Respiratory Rate 18 09/14/18 06:45 Blood Pressure 110/71 09/14/18 06:45 O2 Sat by Pulse Oximetry (%) Laboratory Last Values Urine Color Yellow 09/12/18 11:00 Urine Appearance Clear 09/12/18 11:00 Urine pH 7.5 (5.0-8.0) 09/12/18 11:00 Ur Specific [place] 1.016 (1.010-1.035) 09/12/18 11:00 Urine Protein Negative (NEGATIVE) 09/12/18 11:00 Urine Glucose (UA) Negative (NEGATIVE) 09/12/18 11:00 Urine Ketones Negative (NEGATIVE) 09/12/18 11:00 Urine Blood Negative (NEGATIVE) 09/12/18 11:00 Urine Nitrite Negative (NEGATIVE) 09/12/18 11:00 Urine Bilirubin Negative (NEGATIVE) 09/12/18 11:00 Urine Urobilinogen 0.2 mg/dL (0.2-1.0) 09/12/18 11:00 Ur Leukocyte Esterase Negative (NEGATIVE) 09/12/18 11:00 - Diagnostic (1) Cannabis abuse Current Visit: Yes Status: Chronic (2) Cocaine abuse Current Visit: Yes Status: Chronic (3) Nicotine dependence Current Visit: Yes Status: Chronic Qualifiers: Nicotine product type: cigarettes (4) Opioid dependence on agonist therapy Current Visit: Yes Status: Chronic
== END 2018-09-14 09:30 | disposition short-term general hospital (02) | DRG 772 ==
LOC: YASAS 14:32 → Y3W 14:33 → Y5N 18:07
PROVIDERS: ADMIT Neuromusculoskeletal Medicine & OMM; ATTEND Neuromusculoskeletal Medicine & OMM
PROC: HZ42ZZZ Group Counseling for Substance Abuse Treatment, Cognitive-Behavioral (ICD-10-PCS; principal; 2018-09-08)
DX: F11.20 Opioid dependence, uncomplicated (principal); F14.20 Cocaine dependence, uncomplicated; F12.20 Cannabis dependence, uncomplicated; F17.210 Nicotine dependence, cigarettes, uncomplicated; K59.00 Constipation, unspecified; R10.13 Epigastric pain
CPT/HCPCS: 81003

== ENCOUNTER 2018-10-16 21:34 | Inpatient (IN) | payer OTHER | END 2018-10-18 14:29 | disposition left against medical advice (07) | LOC: YASAS 21:34 → Y3N 23:44 ==

== ENCOUNTER 2018-10-19 00:13 | Emergency (ER) | payer OTHER ==
[2018-10-19 00:29] VITALS: BP 137/79; TEMP 98.9; BMI 25.8
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
[2018-10-19] MEDS ORDERED: ONDANSETRON 4 MG/2 ML VIAL IVPUSH ONE (01:18)
[2018-10-19] MEDS ORDERED: SODIUM CHLORIDE 0.9% 500 ML INFUS.BAG IV ONE (01:19)
[2018-10-19] MEDS ORDERED: ONDANSETRON 4 MG/2 ML VIAL ONE (01:33)
[2018-10-19 01:48] LABS: HEMOGLOBIN 14.3 GM/dL (11.7-16.9); RDW 14.9 % (11.9-15.9); WHITE BLOOD COUNT 11.1 K/mm3 (4.0-10.0)
[2018-10-19] MEDS ORDERED: LORazepam 2 MG/ML SDV VIAL IVPUSH ONE (01:54)
[2018-10-19 01:55] LABS: BASO % 0.4 % (0-2.0); EOS % 0.2 % (0-4.5); HEMATOCRIT 42.9 % (35.4-49); LYMPH % 15.9 % (8-40); MCH 28.9 pg (25.7-33.7); MCHC 33.4 g/dl (32.0-35.9); MEAN CELL VOLUME 86.6 fl (80-96); MEAN PLT VOLUME 10.7 fl (7.5-11.1); MONO % 4.8 % (3.8-10.2); NEUT % 78.7 % (42.8-82.8); PLATELET COUNT 183 K/MM3 (134-434); RBC 4.95 M/mm3 (4.00-5.60)
[2018-10-19] MEDS ORDERED: LORazepam 2 MG/ML SDV VIAL ONE (02:10)
[2018-10-19 02:16] LABS: INR 1.08 (0.83-1.09); PROTHROMBIN TIME (PATIENT) 12.7 SEC (9.7-13.0)
[2018-10-19 02:18] LABS: ALBUMIN 4.4 g/dl (3.4-5.0); ANION GAP 8 MMOL/L (8-16); BLOOD UREA NITROGEN 17.6 mg/dL (7-18); CALCIUM 9.4 mg/dL (8.5-10.1); CHLORIDE 102 mmol/L (98-107); CO2 30 mmol/L (21-32); GLUCOSE,RANDOM 90 mg/dL (74-106); MAGNESIUM 2.3 mg/dL (1.8-2.4); POTASSIUM 4.2 mmol/L (3.5-5.1); SODIUM 140 mmol/L (136-145)
[2018-10-19 02:25] LABS: ALK PHOS 89 U/L (45-117); BILIRUBIN,TOTAL 0.7 mg/dL (0.2-1); CREATININE 0.9 mg/dL (0.55-1.3); SGOT/AST 39 U/L (15-37); SGPT/ALT 74 U/L (13-61); TOT PROT 8.9 g/dl (6.4-8.2)
--- NOTE | 2018-10-19 03:04 | PDOC ---
*Physical Exam - Vital Signs Last Vital Signs Temp Pulse Resp BP Pulse Ox 98.9 F 107 H 22 H 137/79 99 10/19/18 00:20 10/19/18 00:20 10/19/18 00:20 10/19/18 00:20 10/19/18 00:20 ED Treatment Course - LABORATORY CBC & Chemistry Diagram: 10/19/18 01:25 10/19/18 01:25 - ADDITIONAL ORDERS Additional order review: Laboratory Results 10/19/18 10/19/18 01:25 01:25 PT with INR 12.70 INR 1.08 Sodium 140 Potassium 4.2 Chloride 102 Carbon Dioxide 30 Anion Gap 8 BUN 17.6 Creatinine 0.9 Est GFR (CKD-EPI)AfAm 126.90 Est GFR (CKD-EPI)NonAf 109.49 Random Glucose 90 Calcium 9.4 Magnesium 2.3 Total Bilirubin 0.7 AST 39 H ALT 74 H Alkaline Phosphatase 89 Creatine Kinase 186 Creatine Kinase Index 1.2 CK-MB (CK-2) 2.4 Troponin I < 0.02 Total Protein 8.9 H Albumin 4.4 Alcohol, Quantitative < 3.0 10/19/18 01:25 RBC 4.95 MCV 86.6 MCHC 33.4 RDW 14.9 MPV 10.7 Neutrophils % 78.7 Lymphocytes % 15.9 Monocytes % 4.8 Eosinophils % 0.2 Basophils % 0.4 - Medications Given in the ED: ED Medications Discontinued Medications Generic Name Dose Route Start Last Admin Trade Name Freq PRN Reason Stop Dose Admin Lorazepam 1 mg 10/19/18 01:54 10/19/18 02:15 Ativan Injection - IVPUSH 10/19/18 01:55 1 mg ONCE ONE Administration Ondansetron HCl 4 mg 10/19/18 01:18 10/19/18 01:38 Zofran Injection IVPUSH 10/19/18 01:19 4 mg ONCE ONE Administration Sodium Chloride 1,000 ml 10/19/18 01:19 10/19/18 01:38 Normal Saline - IV 10/19/18 01:20 1,000 ml ONCE ONE Administration Medical Decision Making - Medical Decision Making 10/19/18 03:03 Case reviewed, agree with assessment and plan
[2018-10-19 03:36] VITALS: PULSE 84
--- NOTE | 2018-10-19 13:55 | EKG ---
Test Reason : Blood Pressure : / mmHG Vent. Rate : 101 BPM Atrial Rate : 101 BPM P-R Int : 136 ms QRS Dur : 076 ms QT Int : 352 ms P-R-T Axes : 072 054 023 degrees QTc Int : 456 ms SINUS TACHYCARDIA NONSPECIFIC ST ABNORMALITY NO PREVIOUS ECGS AVAILABLE Confirmed by DAYANARA GRANADO MD ([id number]) on 10/19/2018 1:55:38 PM Referred By: Confirmed By:DAYANARA GRANADO MD
== END 2018-10-19 03:36 | disposition home or self-care (01) ==
LOC: JER 00:13
PROC: 3E033NZ Introduction of Analgesics, Hypnotics, Sedatives into Peripheral Vein, Percutaneous Approach (ICD-10-PCS; principal; 2018-10-19)
PROC: 3E033GC Introduction of Other Therapeutic Substance into Peripheral Vein, Percutaneous Approach (ICD-10-PCS; 2018-10-19)
PROC: 3E0337Z Introduction of Electrolytic and Water Balance Substance into Peripheral Vein, Percutaneous Approach (ICD-10-PCS; 2018-10-19)
DX: Z21 Asymptomatic human immunodeficiency virus [HIV] infection status (principal); F10.230 Alcohol dependence with withdrawal, uncomplicated; R07.9 Chest pain, unspecified; K85.90 Acute pancreatitis without necrosis or infection, unspecified; F11.20 Opioid dependence, uncomplicated; J45.909 Unspecified asthma, uncomplicated; R01.1 Cardiac murmur, unspecified
CPT/HCPCS: 36415; 80053; 80307; 82550; 82553; 83735; 84484; 85025; 85610; 93005; 93010; 99284-25